=== PATIENT | female | born 1955 | race Caucasian/White ===

== ENCOUNTER 2024-08-06 16:33 | Emergency (ER) | payer MEDICAID ==
[~2024-08-06] VITALS: Ht 162.6 cm; Wt 92.5 kg
[2024-08-06] MEDS ORDERED: ACET-2605 PO (20:17)
[2024-08-06] MEDS ORDERED: IBUP-1957 PO (20:17)
[2024-08-06 20:23] VITALS: BP 149/91; TEMP 98.2; O2SAT 96
== END 2024-08-06 20:24 | disposition home or self-care (01) ==
LOC: ER 16:47
DX: S22.42XA Multiple fractures of ribs, left side, initial encounter for closed fracture (principal); I10 Essential (primary) hypertension; Z79.1 Long term (current) use of non-steroidal anti-inflammatories (NSAID); Z79.899 Other long term (current) drug therapy; X58.XXXA Exposure to other specified factors, initial encounter; Y93.89 Activity, other specified; Y92.89 Other specified places as the place of occurrence of the external cause; Y99.8 Other external cause status
CPT/HCPCS: 71100-TC